=== PATIENT | male | born 1990 | race Caucasian/White ===

== ENCOUNTER → 2023-10-13 | Outpatient (REF) | payer BC ==
[2023-10-13 11:49] LABS: BASO % 0.7 % (0.0-1.0); EOS # 0.1 10^3/uL (0.0-0.5); HEMATOCRIT 49.6 % (42.0-52.0); HEMOGLOBIN 16.6 g/dl (13.5-17.5); LYMPH # 1.9 10^3/uL (1.5-5.0); LYMPH % 31.5 % (24.0-44.0); MEAN CORPUSCULAR HEMOGLOBIN 28.7 pg (27.0-33.0); MEAN CORPUSCULAR HGB CONC 33.5 g/dl (32.0-36.5); MEAN CORPUSCULAR VOLUME 85.7 fl (80.0-96.0); MONO # 0.6 10^3/uL (0.0-0.8); MONO % 9.9 % (2.0-8.0); NEUTROPHILS # 3.3 10^3/uL (1.5-8.5); NEUTROPHILS % 54.7 % (36.0-66.0); PLATELET COUNT, AUTOMATED 214 10^3/uL (150-450); RED BLOOD COUNT 5.79 10^6/uL (4.30-6.10); WHITE BLOOD COUNT 5.9 10^3/uL (4.0-10.0)
[2023-10-13 12:07] LABS: HEMOGLOBIN A1c 5.3 % (4.0-6.0)
[2023-10-13 12:15] LABS: ALBUMIN 4.3 G/DL (3.2-5.2); ALKALINE PHOSPHATASE 62 U/L (46-116); ALT/SGPT 65 U/L (7.0-40); AST/SGOT 24 U/L (<34); BILIRUBIN,TOTAL 0.6 MG/DL (0.3-1.2); BLOOD UREA NITROGEN 15 MG/DL (9-23); CARBON DIOXIDE LEVEL 28 MMOL/L (20-31); CHLORIDE LEVEL 105 MMOL/L (98-107); CHOLESTEROL LEVEL 204 MG/DL (<200); CHOLESTEROL RISK RATIO 4.83 (<5); CREATININE FOR GFR 0.95 MG/DL (0.70-1.30); GLOMERULAR FILTRATION RATE > 60.0 (>60); GLUCOSE, FASTING 88 MG/DL (60-100); HDL CHOLESTEROL 42.2 MG/DL (>40); NON-HDL-C 161.8 MG/DL; POTASSIUM SERUM 4.4 MMOL/L (3.5-5.1); SODIUM LEVEL 140 MMOL/L (136-145); TOTAL PROTEIN 7.6 G/DL (5.7-8.2); TRIGLYCERIDES LEVEL 99 MG/DL (<150)
[2023-10-13 12:16] LABS: THYROID STIMULATING HORMONE 1.316 uIU/ML (0.55-4.78)
[2023-10-13 12:18] LABS: TOTAL 25(OH) VITAMIN D 39.8 NG/ML (20.0-100.0)
[2023-10-13 12:42] LABS: HIV 1&2 SCREEN NEGATIVE (NEGATIVE)
== END ==
LOC: M LAB REF 11:09
PROVIDERS: ATTEND Physician Assistant
DX: E55.9 Vitamin D deficiency, unspecified (principal); E66.3 Overweight; R07.0 Pain in throat; Z11.9 Encounter for screening for infectious and parasitic diseases, unspecified

== ENCOUNTER → 2023-10-31 | Outpatient (REF) | payer BC | LOC: M LAB REF 16:28 | PROVIDERS: ATTEND Nurse Practitioner Family | DX: R07.0 Pain in throat (principal) ==

== ENCOUNTER → 2023-12-06 | Outpatient (REF) | payer BC | LOC: M LAB REF 16:17 | PROVIDERS: ATTEND Physician Assistant | DX: B34.9 Viral infection, unspecified (principal) ==

== ENCOUNTER 2023-12-20 19:58 | Emergency (ER) | payer BC ==
[~2023-12-20] VITALS: Ht 185.4 cm; Wt 94.6 kg
[2023-12-20] MEDS ORDERED: AIMO70IN2 (20:16)
[2023-12-20] MEDS ORDERED: PANT40TA29 (20:16)
[2023-12-20] MEDS ORDERED: RIME75TA (20:16)
[2023-12-20 23:00] LABS: BASO % 0.3 % (0.0-1.0); EOS % 0.1 % (0.0-3.0); HEMATOCRIT 48.3 % (42.0-52.0); HEMOGLOBIN 16.4 g/dl (13.5-17.5); LYMPH # 1.6 10^3/uL (1.5-5.0); LYMPH % 13.3 % (24.0-44.0); MEAN CORPUSCULAR HEMOGLOBIN 28.8 pg (27.0-33.0); MEAN CORPUSCULAR VOLUME 84.9 fl (80.0-96.0); MONO # 0.6 10^3/uL (0.0-0.8); MONO % 5.3 % (2.0-8.0); NEUTROPHILS # 9.6 10^3/uL (1.5-8.5); NEUTROPHILS % 80.7 % (36.0-66.0); PLATELET COUNT, AUTOMATED 222 10^3/uL (150-450); RED BLOOD COUNT 5.69 10^6/uL (4.30-6.10); WHITE BLOOD COUNT 11.8 10^3/uL (4.0-10.0)
[2023-12-20 23:22] LABS: ALBUMIN 4.5 G/DL (3.2-5.2); ALKALINE PHOSPHATASE 65 U/L (46-116); ALT/SGPT 111 U/L (7.0-40); AST/SGOT 39 U/L (<34); BILIRUBIN,TOTAL 0.4 MG/DL (0.3-1.2); BLOOD UREA NITROGEN 17 MG/DL (9-23); CALCIUM LEVEL 9.9 MG/DL (8.5-10.1); CARBON DIOXIDE LEVEL 28 MMOL/L (20-31); CHLORIDE LEVEL 107 MMOL/L (98-107); CK-MB VALUE MASS < 1.0 NG/ML (<3.6); CREATININE FOR GFR 0.92 MG/DL (0.70-1.30); GLOMERULAR FILTRATION RATE > 60.0 (>60); GLUCOSE, FASTING 113 MG/DL (60-100); POTASSIUM SERUM 4.1 MMOL/L (3.5-5.1); SODIUM LEVEL 141 MMOL/L (136-145)
[2023-12-20 23:23] LABS: CPK CREATINE PHOSPHOKINASE 108 U/L (46-171); MB/CK RELATIVE INDEX 0.92 (< OR =4)
[2023-12-20] MEDS ORDERED: ISOVUE-370 76% 100ML VIAL As Ordered ONE (23:27)
[2023-12-21] MEDS: NS 1,000 ML IV ONE (00:06)
[2023-12-21 00:31] LABS: MAGNESIUM LEVEL 1.8 MG/DL (1.8-2.4)
[2023-12-21 00:32] LABS: CK-MB VALUE MASS < 1.0 NG/ML (<3.6)
[2023-12-21 00:33] LABS: CPK CREATINE PHOSPHOKINASE 92 U/L (46-171); MB/CK RELATIVE INDEX 1.08 (< OR =4)
[2023-12-21 00:35] LABS: THYROID STIMULATING HORMONE 2.854 uIU/ML (0.55-4.78)
[2023-12-21 00:44] LABS: RSV AMPLIFICATION NEGATIVE (NEGATIVE)
[2023-12-21] MEDS ORDERED: HOLTER MONITOR XX (01:19)
[2023-12-21 01:21] LABS: CK-MB VALUE MASS < 1.0 NG/ML (<3.6)
[2023-12-21 01:22] LABS: CPK CREATINE PHOSPHOKINASE 90 U/L (46-171); MB/CK RELATIVE INDEX 1.11 (< OR =4)
[2023-12-21 01:58] VITALS: BP 143/88; TEMP 98.1; O2SAT 99
== END 2023-12-21 02:01 | disposition home or self-care (01) ==
LOC: M ED 19:58
DX: E86.0 Dehydration (principal); R00.2 Palpitations; R55 Syncope and collapse; G43.909 Migraine, unspecified, not intractable, without status migrainosus; F10.10 Alcohol abuse, uncomplicated; Z79.899 Other long term (current) drug therapy
CPT/HCPCS: 70450; 71275; 80053; 82550; 82553; 83605; 83735; 84443; 84484; 85025; 87631; 93005; 93041; 94760; 96360; 96361; 99285; Q9967

== ENCOUNTER → 2025-02-27 | Outpatient (CLI) | payer BC ==
[~2025-02-27] MED LIST: AIMO70IN2; HOLTER MONITOR XX; PANT40TA29; RIME75TA
== END ==
LOC: M WUC 13:09
PROVIDERS: ATTEND Nurse Practitioner Family
DX: R05.9 Cough, unspecified (principal)

== ENCOUNTER → 2025-06-25 | Outpatient (REF) | payer BC ==
[2025-06-25 16:37] LABS: ALT/SGPT 56 U/L (7.0-40); AST/SGOT 32 U/L (<34); CALCIUM LEVEL 9.2 MG/DL (8.5-10.1); CARBON DIOXIDE LEVEL 27 MMOL/L (20-31); CHLORIDE LEVEL 102 MMOL/L (98-107); CHOLESTEROL LEVEL 205 MG/DL (<200); CHOLESTEROL RISK RATIO 5.15 (<5); CREATININE FOR GFR 0.92 MG/DL (0.70-1.30); GLOMERULAR FILTRATION RATE > 90.0 (>60); LDL CHOLESTEROL 145.6 MG/DL (<100); MAGNESIUM LEVEL 1.9 MG/DL (1.8-2.4); NON-HDL-C 165.2 MG/DL; POTASSIUM SERUM 4.3 MMOL/L (3.5-5.1); SODIUM LEVEL 139 MMOL/L (136-145); TRIGLYCERIDES LEVEL 98 MG/DL (<150)
[2025-06-25 16:39] LABS: FREE T4 1.40 NG/DL (0.89-1.76); TOTAL 25(OH) VITAMIN D 35.2 NG/ML (20.0-100.0)
[2025-06-25 16:40] LABS: ESTIMATED AVERAGE GLUCOSE 103.0 MG/DL (60-110)
== END ==
LOC: M LAB REF 16:14
PROVIDERS: ATTEND Physician Assistant
DX: G43.709 Chronic migraine without aura, not intractable, without status migrainosus (principal); E55.9 Vitamin D deficiency, unspecified; E78.5 Hyperlipidemia, unspecified

== ENCOUNTER → 2025-06-26 | Outpatient (REF) | payer BC | LOC: M LAB REF 12:18 | PROVIDERS: ATTEND Physician Assistant | DX: K29.70 Gastritis, unspecified, without bleeding (principal) ==